=== PATIENT | female | born 1990 | race American Indian/Alaskan Native ===

== ENCOUNTER 2017-04-20 22:53 | Emergency (ER) | payer SELFPAY ==
[2017-04-20 23:52] LABS: Basophils % (Auto) 0.6 % (0.0-1.8); Eosinophils % (Auto) 0.3 % (0.0-4.3); Hematocrit 38.8 % (30.3-42.9); Hemoglobin 12.2 gm/dl (10.1-14.3); Mean Corpuscular HGB Conc 32 % (30-34); Mean Corpuscular Volume 74 fl (79-97); Platelet Count 320 K/mm3 (140-440); Red Blood Count 5.22 M/mm3 (3.65-5.03); Red Cell Distribution Width 16.1 % (13.2-15.2); White Blood Count 10.3 K/mm3 (4.5-11.0)
[2017-04-21 00:10] LABS: Mean Corpuscular Hemoglobin 23 pg (28-32)
[2017-04-21 00:23] LABS: BUN/Creatinine Ratio 11.25; Blood Urea Nitrogen 9 mg/dL (7-17); Calcium 9.9 mg/dL (8.4-10.2); Carbon Dioxide 22 mmol/L (22-30); Chloride 97.5 mmol/L (98-107); Glucose 97 mg/dL (65-100); Sodium 137 mmol/L (137-145)
[2017-04-21 00:47] LABS: Anion Gap 23 mmol/L
[2017-04-21 00:48] LABS: Potassium 5.4 mmol/L (3.6-5.0)
[2017-04-21 05:46] VITALS: BP 106/62
--- NOTE | 2017-04-21 09:41 | XRay Report ---
CHEST TWO VIEWS: 04/20/17 22:53:00 CLINICAL: Chest pain. COMPARISON: None FINDINGS: Normal heart and pulmonary vasculature. The lungs are normally expanded and clear.The bones and soft tissues are unremarkable. IMPRESSION: Normal chest.
== END 2017-04-21 05:46 | disposition left against medical advice (07) ==
LOC: ED 22:53
DX: R07.9 Chest pain, unspecified (principal); R06.00 Dyspnea, unspecified; Z53.21 Procedure and treatment not carried out due to patient leaving prior to being seen by health care provider
CPT/HCPCS: 36415; 71020; 80048; 84484; 85025; 85379; 93005; 93010